=== PATIENT | male | born 1985 | race Caucasian/White ===

== ENCOUNTER 2024-12-28 12:01 | Day surgery (SDC) | payer OTHER ==
[2024-12-26 12:26] VITALS: BMI 26.5
[2024-12-28] MEDS ORDERED: AFRIN NASAL MIST 15 ML BOT ONE ×2 (12:20→14:50)
[2024-12-28] MEDS ORDERED: PROPOFOL 20 ML ONE (13:59)
[2024-12-28] MEDS ORDERED: Rocuronium Bromide 10 MG/ML (10ML VIAL) ONE (14:00)
[2024-12-28] MEDS ORDERED: Lidocaine 1% PF 5 ML VIAL ONE (14:00)
[2024-12-28] MEDS ORDERED: Bacitracin 1 PK ONE (14:50)
[2024-12-28] MEDS ORDERED: Lidocaine 1% w/Epinephrine 1:200K 30 ML VIAL ONE (14:51)
[2024-12-28] MEDS ORDERED: Ondansetron PF 4 MG/2 ML Vial ONE (15:23)
[2024-12-28] MEDS ORDERED: SUGAMMADEX SODIUM 200 MG/2 ML VIAL ONE (15:35)
[2024-12-28] MEDS ORDERED: Oxymetazoline HCl 0.05% (15 ML) ONE (15:35)
[2024-12-28] MEDS ORDERED: HYDROcodone/Acetaminophen 5/325 mg Tablet ONE (16:27)
[2024-12-28] MEDS ORDERED: Hydrocodone-Acetamin 15 ML UDCUP ONE (16:38)
== END 2024-12-28 17:00 | disposition home or self-care (01) ==
LOC: CSHSDC 12:01
PROVIDERS: ATTEND Specialist
PROC: 09BM4ZZ Excision of Nasal Septum, Percutaneous Endoscopic Approach (ICD-10-PCS; principal; 2024-12-28)
PROC: 09TL8ZZ Resection of Nasal Turbinate, Via Natural or Artificial Opening Endoscopic (ICD-10-PCS; principal; 2024-12-28)
DX: J34.2 Deviated nasal septum (principal); J34.3 Hypertrophy of nasal turbinates; Q38.2 Macroglossia; R06.83 Snoring; R53.83 Other fatigue
CPT/HCPCS: J1100; J2250; J2405; J2704; J3010